=== PATIENT | female | born 1980 | race Caucasian/White ===

== ENCOUNTER 2018-01-19 09:01 | Inpatient (IN) | payer MEDICAID ==
[~2018-01-19] VITALS: Ht 172.7 cm; Wt 66.0 kg
[2018-01-19] VITALS (9 sets, daily range): BP systolic 99–117; BP diastolic 56–79; PULSE 65–86; RESP 16–20; TEMP 99.4; O2SAT 96–100
[2018-01-19] MEDS ORDERED: ZOLO25TA PO (09:16)
[2018-01-19] MEDS ORDERED: IBUP1TAB7 PO (09:16)
--- NOTE | 2018-01-19 09:23 | PD ---
HPI Chief Complaint: Musculoskeletal Complaint Time Seen by Provider: 09:16 Travel History International Travel<30 days: No Contact w/Intl Traveler<30days: No Traveled to known affect area: No History of Present Illness HPI Today while the patient was ambulating about she had a mechanical trip and fall , landing directly onto her left elbow. Immediately after that fall she was been unable to extend or flex that elbow she is kept at a 90 flexed position. She is noted swelling to the elbow and just above the elbow. Patient denies any shoulder pain denies any wrist pain. Describes the pain as sharp , nonradiating, 9 out of 10, worse with moving, slightly better when standing still. Patient states that she has no known drug allergy She patient states that she has only a medical history of congenital hip dysplasia which required surgery PFSH Past Medical History ?: Not Social History Tobacco Use: No Allergies-Medications (Allergen,Severity, Reaction): Coded Allergies: No Known Allergies (Unverified , 01/19/18) Reported Meds & Prescriptions Reported Meds & Active Scripts Active Reported Ibuprofen 800 Mg Tab 800 Mg PO Q8H PRN Zoloft (Sertraline HCl) 25 Mg Tab 15 Mg PO DAILY Review of Systems General / Constitutional: No: Fever Eyes: No: Visual changes HENT: No: Headaches Cardiovascular: No: Chest Pain or Discomfort Respiratory: No: Shortness of Breath Gastrointestinal: No: Abdominal Pain Genitourinary: No: Dysuria Musculoskeletal: Positive: Limited ROM, Pain Skin: No Rash Neurologic: No: Weakness Psychiatric: No: Depression Endocrine: No: Polydipsia Hematologic/Lymphatic: No: Easy Bruising Physical Exam Narrative GENERAL: SKIN: Warm and dry. HEAD: Atraumatic. Normocephalic. EYES: Pupils equal and round. No scleral icterus. No injection or drainage. ENT: No nasal bleeding or discharge. Mucous membranes pink and moist. NECK: Trachea midline. No JVD. CARDIOVASCULAR: Regular rate and rhythm. RESPIRATORY: No accessory muscle use. Clear to auscultation. Breath sounds equal bilaterally. GASTROINTESTINAL: Abdomen soft, non-tender, nondistended. Hepatic and splenic margins not palpable. MUSCULOSKELETAL: Extremities without clubbing, cyanosis, or edema. left elbow edema, referred pain to the elbow with AP pressure at the distal radial ulnar wrist area. An abrasion over the elbow however no open laceration noted. Strong pulses to the axilla, antecubital area, and to distal radius area bilaterally... Soft compartments noted NEUROLOGICAL: Awake and alert. No obvious cranial nerve deficits. Motor grossly within normal limits. Five out of 5 muscle strength in the arms and legs. Normal speech. PSYCHIATRIC: Appropriate mood and affect; insight and judgment normal. Data Data Last Documented VS Vital Signs Date Time Temp Pulse Resp B/P (MAP) Pulse Ox O2 Delivery O2 Flow Rate FiO2 01/19/18 10:35 18 01/19/18 10:34 80 106/58 (74) 96 Room Air 01/19/18 09:03 99.4 Orders Orders Complete Blood Count With Diff (01/19/18 09:23) Basic Metabolic Panel (Bmp) (01/19/18 09:23) Prothrombin Time / Inr (Pt) (01/19/18 09:23) Act Partial Throm Time (Ptt) (01/19/18 09:23) Elbow, Complete (4 Vws) (01/19/18 09:23) Forearm (2vws) (01/19/18 09:23) Ondansetron Inj (Zofran Inj) (01/19/18 10:00) Hydromorphone Pf Inj (Dilaudid Pf Inj) (01/19/18 10:15) Hydromorphone Pf Inj (Dilaudid Pf Inj) (01/19/18 12:15) Labs Laboratory Tests Test 01/19/18 09:50 White Blood Count 10.4 TH/MM3 Red Blood Count 3.85 MIL/MM3 Hemoglobin 13.1 GM/DL Hematocrit 37.2 % Mean Corpuscular Volume 96.6 FL Mean Corpuscular Hemoglobin 34.0 PG Mean Corpuscular Hemoglobin Concent 35.2 % Red Cell Distribution Width 12.5 % Platelet Count 322 TH/MM3 Mean Platelet Volume 8.7 FL Neutrophils (%) (Auto) 76.3 % Lymphocytes (%) (Auto) 12.5 % Monocytes (%) (Auto) 7.6 % Eosinophils (%) (Auto) 2.9 % Basophils (%) (Auto) 0.7 % Neutrophils # (Auto) 7.9 TH/MM3 Lymphocytes # (Auto) 1.3 TH/MM3 Monocytes # (Auto) 0.8 TH/MM3 Eosinophils # (Auto) 0.3 TH/MM3 Basophils # (Auto) 0.1 TH/MM3 CBC Comment AUTO DIFF Differential Comment AUTO DIFF CONFIRMED Platelet Estimate NORMAL Platelet Morphology Comment NORMAL Prothrombin Time 10.6 SEC Prothromb Time International Ratio 1.0 RATIO Activated Partial Thromboplast Time 24.9 SEC Blood Urea Nitrogen 9 MG/DL Creatinine 0.42 MG/DL Random Glucose 100 MG/DL Calcium Level 8.5 MG/DL Sodium Level 142 MEQ/L Potassium Level 3.9 MEQ/L Chloride Level 109 MEQ/L Carbon Dioxide Level 24.0 MEQ/L Anion Gap 9 MEQ/L Estimat Glomerular Filtration Rate 172 ML/MIN MDM Medical Decision Making Medical Screen Exam Complete: Yes Emergency Medical Condition: Yes Medical Record Reviewed: Yes Differential Diagnosis Left elbow fracture versus elbow dislocation versus elbow contusion versus olecranon fracture Narrative Course X-ray shows comminuted displaced fracture involving the distal left humerus, entire medial epicondyle is a free segment, there is also posterior displacement of the ulna. Orthopedics will be called for admission Physician Communication Physician Communication Attempted to discuss the case with Dr. Wolfe, first call and second call did not return the call for about an hour or so, later on found that this was secondary to the Dr. Wolfe being involved in surgery. I reminded callback however I was in the middle of doing a central line for a septic shock patient and I could not speak with him at the time, Dr. Wolfe mentioned that he was on his way into another surgery at the time that I was placed in the central line. Therefore at this time I will be admitting the patient to the medicine service and have Dr. Wolfe consulted for evaluation of surgical repair Diagnosis Primary Impression: Comminuted left elbow fracture closed Admitting Information Admitting Physician Requests: Observation Wisam Hernandez MD Jan 19, 2018 09:23
--- NOTE | 2018-01-19 09:54 | RADRPT ---
EXAM DATE/TIME: 01/19/2018 09:28 [facility] COMPARISON: No previous studies available for comparison. INDICATIONS : Fall last night, left elbow pain. MEDICAL HISTORY : None. SURGICAL HISTORY : None. ENCOUNTER: Initial ACUITY: 2 days PAIN SCORE: 10/10 LOCATION: Left elbow FINDINGS: There is an intra-articular fracture with moderate displacement involving the distal left humerus. Th e visualized radius and ulna appear grossly intact. Please see elbow films for additional details. CONCLUSION: Elbow fracture Rosendo Oro MD on January 19, 2018 at 9:50 Board Certified Radiologist. This report was verified electronically.
--- NOTE | 2018-01-19 09:58 | RADRPT ---
EXAM DATE/TIME: 01/19/2018 09:28 [facility] COMPARISON: No previous studies available for comparison. INDICATIONS : Fall last night, left elbow pain. MEDICAL HISTORY : None. SURGICAL HISTORY : None. ENCOUNTER: Initial ACUITY: 2 days PAIN SCORE: 10/10 LOCATION: Left elbow FINDINGS: The examination demonstrates fracture of the left elbow. There is a large bone fragment which appears to represent a fracture dislocation of the medial epicondyles. There is posterior displacement of th e olecranon and proximal ulna. There is mild comminution. There is diffuse soft tissue swelling. CONCLUSION: 1. Comminuted, displaced fracture involving the distal left humerus. The entire medial epicondyle mirela ears to be a free fragment. There is posterior displacement of the ulna. Judah Byrd MD on January 19, 2018 at 9:52 Board Certified Radiologist. This report was verified electronically.
[2018-01-19] MEDS ORDERED: HYDROmorphone HCL PF 1 MG/ML VIAL IV PUSH ONE ×2 (10:00→12:00)
[2018-01-19] MEDS ORDERED: ONDANSETRON HCL 4 MG/2 ML VIAL IV PUSH ONE (10:00)
[2018-01-19 10:09] LABS: AUTOMATED NEUTROPHIL # 7.9 TH/MM3 (1.8-7.7); BASOPHIL # 0.1 TH/MM3 (0-0.2); BASOPHIL % 0.7 % (0.0-2.0); EOSINOPHIL # 0.3 TH/MM3 (0-0.4); EOSINOPHIL % 2.9 % (0.0-4.0); HEMATOCRIT 37.2 % (35.0-46.0); HEMOGLOBIN 13.1 GM/DL (11.6-15.3); LYMPH % 12.5 % (9.0-44.0); LYMPHOCYTE # 1.3 TH/MM3 (1.0-4.8); MEAN CELL VOLUME 96.6 FL (80.0-100.0); MEAN CORPUSCULAR HGB CONC 35.2 % (32.0-36.0); MEAN PLATELET VOLUME 8.7 FL (7.0-11.0); MONO % 7.6 % (0.0-8.0); MONOCYTE # 0.8 TH/MM3 (0-0.9); NEUT % 76.3 % (16.0-70.0); PLATELET COUNT 322 TH/MM3 (150-450); RED BLOOD COUNT 3.85 MIL/MM3 (4.00-5.30); RED CELL DISTRIBUTION WIDTH 12.5 % (11.6-17.2); WHITE BLOOD COUNT 10.4 TH/MM3 (4.0-11.0)
[2018-01-19 10:13] LABS: CALCIUM 8.5 MG/DL (8.5-10.1); PROTHROMBIN TIME - PATIENT 10.6 SEC (9.8-11.6)
[2018-01-19] MEDS ORDERED: HYDROmorphone HCL PF 2 MG/ML VIAL IV PUSH ONE ×2 (10:15→12:15)
[2018-01-19 10:17] LABS: CREATININE 0.42 MG/DL (0.50-1.00)
[2018-01-19] MEDS ORDERED: MAGNESIUM HYDROXIDE SUSP 30 ML CUP PO PRN (13:00)
[2018-01-19] MEDS ORDERED: ACETAMINOPHEN 325 MG TAB PO PRN (13:00)
[2018-01-19] MEDS ORDERED: NALOXONE HCL 0.4 MG/ML AMP IV PUSH PRN (13:00)
[2018-01-19] MEDS ORDERED: SODIUM CHLORIDE 0.9% FLUSH 10 ML FLUSH IV FLUSH PRN (13:00)
[2018-01-19] MEDS: SODIUM CHLOR 0.9% 1000 ML INJ 1,000 ML IV SCH (13:20)
[2018-01-19] MEDS: HYDROmorphone HCL PF 2 MG/ML VIAL IVS PRN ×2 (15:59→20:44)
[2018-01-19] MEDS: ONDANSETRON HCL 4 MG/2 ML VIAL IVP PRN ×3 (15:59→23:45)
--- NOTE | 2018-01-19 16:42 | HHI.HP ---
[facility] Service [facility] Primary Care Physician Non-Staff Admission Diagnosis COMMINUTED CLOSED LEFT ELBOW FRACTURE Diagnoses: Chief Complaint: Mechanical fall with elbow fracture Travel History International Travel<30 Days: No Contact w/Intl Traveler <30 Da: No Traveled to Known Affected Are: No History of Present Illness This patient is a 37-year-old female with history of anxiety arthritis and had a fall after climbing on a gait. She landed on her elbow and was unable to move it after she got herself up. She had quite a bit of swelling on exam originally and that this time the patient has been splinted by the emergency room. X-rays do show comminuted fracture displacing the ulna. Patient will need to be admitted to the hospital for surgical treatment of this traumatic fracture. Her pain has been controlled with IV Dilaudid. She is resting comfortably at this time Review of Systems Constitutional: DENIES: Diaphoretic episodes, Fatigue, Fever, Weight gain, Weight loss, Chills, Dizziness, Change in appetite, Night Sweats Endocrine: DENIES: Abnorml menstrual pattern, Heat/cold intolerance, Polydipsia , Polyuria, Polyphagia Eyes: DENIES: Blurred vision, Diplopia, Eye inflammation, Eye pain, Vision loss , Photosensitivity, Double Vision Ears, nose, mouth, throat: DENIES: Tinnitus, Hearing loss, Vertigo, Nasal discharge, Oral lesions, Throat pain, Hoarseness, Ear Pain, Running Nose, Epistaxis, Sinus Pain, Toothache, Odynophagia Respiratory: DENIES: Apneas, Cough, Snoring, Wheezing, Hemoptysis, Sputum production, Shortness of breath Cardiovascular: DENIES: Chest pain, Palpitations, Syncope, Dyspnea on Exertion , PND, Lower Extremity Edema, Orthopnea, Claudication Gastrointestinal: DENIES: Abdominal pain, Black stools, Bloody stools, Constipation, Diarrhea, Nausea, Vomiting, Difficulty Swallowing, Anorexia Genitourinary: DENIES: Abnormal vaginal bleeding, Dysmenorrhea, Dyspareunia, Sexual dysfunction, Urinary frequency, Urinary incontinence, Urgency, Hematuria , Dysuria, Nocturia, Vaginal discharge Musculoskeletal: COMPLAINS OF: Joint pain Integumentary: DENIES: Abnormal pigmentation, Pruritus, Rash, Nail changes, Breast masses, Breast skin changes, Nipple discharge Hematologic/lymphatic: DENIES: Bruising, Lymphadenopathy Immunologic/allergic: DENIES: Eczema, Urticaria Neurologic: DENIES: Abnormal gait, Headache, Localized weakness, Paresthesias, Seizures, Speech Problems, Tremor, Poor Balance Psychiatric: COMPLAINS OF: Anxiety, DENIES: Confusion, Mood changes, Depression , Hallucinations, Agitation, Suicidal Ideation, Homicidal Ideation Except as stated in HPI: all other systems reviewed are Neg Past Family Social History Past Medical History Anxiety Osteoarthritis Past Surgical History Hip surgery as a child Reported Medications Takes ibuprofen and Zoloft Allergies: Coded Allergies: No Known Allergies (Unverified , 01/19/18) Active Ordered Medications Reviewed in the EMR Family History Mother and father alive and well Social History No current tobacco or alcohol dependency, Lives with her family Physical Exam Vital Signs Vital Signs Date Time Temp Pulse Resp B/P (MAP) Pulse Ox O2 Delivery O2 Flow Rate FiO2 01/19/18 16:24 18 01/19/18 16:05 71 18 112/72 (85) 96 Room Air 01/19/18 15:16 68 18 107/66 (80) 98 Room Air 01/19/18 12:40 18 01/19/18 12:15 84 18 109/70 (83) 97 Room Air 01/19/18 10:35 18 01/19/18 10:34 80 18 106/58 (74) 96 Room Air 01/19/18 09:03 99.4 86 20 117/79 (92) 96 Physical Exam GENERAL: This is a well-nourished, well-developed patient, in no apparent distress. SKIN: No rashes, ecchymoses or lesions. Cool and dry. HEAD: Atraumatic. Normocephalic. No temporal or scalp tenderness. EYES: Pupils equal round and reactive. Extraocular motions intact. No scleral icterus. No injection or drainage. ENT: Nose without bleeding, purulent drainage or septal hematoma. Throat without erythema, tonsillar hypertrophy or exudate. Uvula midline. Airway patent. NECK: Trachea midline. No JVD or lymphadenopathy. Supple, nontender, no meningeal signs. CARDIOVASCULAR: Regular rate and rhythm without murmurs, gallops, or rubs. RESPIRATORY: Clear to auscultation. Breath sounds equal bilaterally. No wheezes , rales, or rhonchi. GASTROINTESTINAL:abdomen soft, non-tender, nondistended. No hepato-splenomegaly , or palpable masses. No guarding. MUSCULOSKELETAL: Left arm splint, Extremities without clubbing, cyanosis, or edema. No joint tenderness, effusion, or edema noted. No calf tenderness. Negative Homans sign bilaterally. NEUROLOGICAL: Awake and alert. Cranial nerves II through XII intact. Motor and sensory grossly within normal limits. Five out of 5 muscle strength in all muscle groups. Normal speech. Laboratory Laboratory Tests Test 01/19/18 09:50 White Blood Count 10.4 Red Blood Count 3.85 Hemoglobin 13.1 Hematocrit 37.2 Mean Corpuscular Volume 96.6 Mean Corpuscular Hemoglobin 34.0 Mean Corpuscular Hemoglobin Concent 35.2 Red Cell Distribution Width 12.5 Platelet Count 322 Mean Platelet Volume 8.7 Neutrophils (%) (Auto) 76.3 Lymphocytes (%) (Auto) 12.5 Monocytes (%) (Auto) 7.6 Eosinophils (%) (Auto) 2.9 Basophils (%) (Auto) 0.7 Neutrophils # (Auto) 7.9 Lymphocytes # (Auto) 1.3 Monocytes # (Auto) 0.8 Eosinophils # (Auto) 0.3 Basophils # (Auto) 0.1 CBC Comment AUTO DIFF Differential Comment AUTO DIFF CONFIRMED Platelet Estimate NORMAL Platelet Morphology Comment NORMAL Prothrombin Time 10.6 Prothromb Time International Ratio 1.0 Activated Partial Thromboplast Time 24.9 Blood Urea Nitrogen 9 Creatinine 0.42 Random Glucose 100 Calcium Level 8.5 Sodium Level 142 Potassium Level 3.9 Chloride Level 109 Carbon Dioxide Level 24.0 Anion Gap 9 Estimat Glomerular Filtration Rate 172 Result Diagram: 01/19/1850 01/19/18949 Imaging Last Impressions Radius/Ulna X-Ray 01/19/18922 Signed Impressions: Service Date/Time: Friday, January 19, 2018 09:28 - CONCLUSION: Elbow fracture Rosendo Oro MD Elbow X-Ray 01/19/18922 Signed Impressions: Service Date/Time: Friday, January 19, 2018 09:28 - CONCLUSION: 1. Comminuted, displaced fracture involving the distal left humerus. The entire medial epicondyle appears to be a free fragment. There is posterior displacement of the ulna. MD Karen Acuña VTE Risk Assessment Caprini VTE Risk Assessment: No/Low Risk (score <= 1) Caprini Risk Assessment Model Point Value = 1 Point Value = 2 Point Value = 3 Point Value = 5 Age 41-60 Minor surgery BMI > 25 kg/m2 Swollen legs Varicose veins or History of unexplained or recurrent spontaneous Oral contraceptives or hormone replacement Sepsis (< 1 month) Serious lung disease, including pneumonia (< 1 month) Abnormal pulmonary function Acute myocardial infarction Congestive heart failure (< 1 month) History of inflammatory bowel disease Medical patient at bed rest Age 61-74 Arthroscopic surgery Major open surgery (> 45 min) Laparoscopic surgery (> 45 min) Malignancy Confined to bed (> 72 hours) Immobilizing plaster cast Central venous access Age >= 75 History of VTE Family history of VTE Factor V Leiden Prothrombin [id number] Lupus anticoagulant Anticardiolipin antibodies Elevated serum homocysteine Heparin-induced thrombocytopenia Other congenital or acquired thrombophilia Stroke (< 1 month) Elective arthroplasty Hip, pelvis, or leg fracture Acute spinal cord injury (< 1 month) Prophylaxis Regimen Total Risk Factor Score Risk Level Prophylaxis Regimen 0-1 Low Early ambulation 2 Moderate Order ONE of the following: *Sequential Compression Device (SCD) *Heparin 5000 units SQ BID 3-4 Higher Order ONE of the following medications: *Heparin 5000 units SQ TID *Enoxaparin/Lovenox 40 mg SQ daily (WT < 150 kg, CrCl > 30 mL/min) *Enoxaparin/Lovenox 30 mg SQ daily (WT < 150 kg, CrCl > 10-29 mL/min) *Enoxaparin/Lovenox 30 mg SQ BID (WT < 150 kg, CrCl > 30 mL/min) AND/OR *Sequential Compression Device (SCD) 5 or more Highest Order ONE of the following medications: *Heparin 5000 units SQ TID (Preferred with Epidurals) *Enoxaparin/Lovenox 40 mg SQ daily (WT < 150 kg, CrCl > 30 mL/min) *Enoxaparin/Lovenox 30 mg SQ daily (WT < 150 kg, CrCl > 10-29 mL/min) *Enoxaparin/Lovenox 30 mg SQ BID (WT < 150 kg, CrCl > 30 mL/min) AND *Sequential Compression Device (SCD) Assessment and Plan Problem List: (1) Anxiety ICD Code: F41.9 - Anxiety disorder, unspecified Plan: Continue home medications (2) Fractured elbow ICD Code: S42.409A - Unspecified fracture of lower end of unspecified humerus, initial encounter for closed fracture Plan: Continue with pain medication, IV Dilaudid needed Surgical treatment requested by orthopedic surgeon in consultation Physician Certification 2 Midnight Certification Type: Admission for Inpatient Services Order for Inpatient Services The services are ordered in accordance with Medicare regulations or non- Medicare payer requirements, as applicable. In the case of services not specified as inpatient-only, they are appropriately provided as inpatient services in accordance with the 2-midnight benchmark. Estimated LOS (days): 2 2 days is the estimated time the patient will need to remain in the hospital, assuming treatment plan goals are met and no additional complications. Post-Hospital Plan: Home Patty Jimenez MD Jan 19, 2018 16:42
[2018-01-19] MEDS: DOCUSATE SODIUM 50 MG/SENNA 8.6 MG TAB PO SCH (21:00)
[2018-01-19] MEDS: SODIUM CHLORIDE 0.9% FLUSH 10 ML FLUSH IV FLUSH SCH (21:00)
[2018-01-20] MEDS: HYDROmorphone HCL PF 2 MG/ML VIAL IVS PRN ×3 (01:39→14:42)
[2018-01-20 01:45] VITALS: BP 98/56; PULSE 65; RESP 16; O2SAT 99
[2018-01-20] MEDS: ONDANSETRON HCL 4 MG/2 ML VIAL IVP PRN (05:56)
[2018-01-20 06:16] VITALS: BP 103/52; PULSE 74; RESP 16; O2SAT 99
--- NOTE | 2018-01-20 07:23 | RADRPT ---
EXAM DATE/TIME: 01/20/2018 06:48 [facility] COMPARISON: ELBOW LEFT COMPLETE (4 VWS), January 19, 2018, 9:28. INDICATIONS : Comminuted closed left elbow fracture. RADIATION DOSE: 14.84 CTDIvol (mGy) MEDICAL HISTORY : None SURGICAL HISTORY : None. ENCOUNTER: Initial ACUITY: 1 day PAIN SCALE: 4/10 LOCATION: Left elbow TECHNIQUE: Volumetric scanning of the elbow was performed. Using automated exposure control and adjustment of t he mA and/or kV according to patient size, radiation dose was kept as low as reasonably achievable to obtain optimal diagnostic quality images. DICOM format image data is available electronically for r eview and comparison. FINDINGS: There is evidence of an acute comminuted displaced intracondylar fracture of the distal humerus. Ther e is a nondisplaced fracture involving the olecranon process of the proximal ulna. There is a tiny radha ne fragment adjacent to the radial head which raises the possibility of tiny avulsion fracture of the radial head. Diffuse soft tissue swelling is noted. CONCLUSION: 1. Acute comminuted displaced intracondylar fracture of the distal humerus. 2. Nondisplaced fracture involving the olecranon process of the proximal ulna. 3. Tiny bone fragment adjacent to the radial head which is a possibility of tiny avulsion fracture of the radial head. Alhaji Bruce MD on January 20, 2018 at 7:14 Board Certified Radiologist. This report was verified electronically.
[2018-01-20] MEDS: SODIUM CHLORIDE 0.9% FLUSH 10 ML FLUSH IV FLUSH SCH ×2 (08:39→20:54)
[2018-01-20] MEDS: SODIUM CHLOR 0.9% 1000 ML INJ 1,000 ML IV SCH ×2 (08:51)
[2018-01-20 08:58] VITALS: BP 112/69; PULSE 64; RESP 20; O2SAT 93
[2018-01-20] MEDS: DOCUSATE SODIUM 50 MG/SENNA 8.6 MG TAB PO SCH ×2 (09:00→21:00)
[2018-01-20 12:00] VITALS: BP 108/62; PULSE 68; RESP 18; TEMP 97.9; O2SAT 97
[2018-01-20] MEDS ORDERED: NEOSTIGMINE 5 MG/5 ML SYRINGE IV PUSH ONE (12:00)
[2018-01-20] MEDS ORDERED: PROPOFOL 200 MG/20 ML AMP IV ONE (12:00)
[2018-01-20] MEDS ORDERED: LIDOCAINE HCL 1% PF 5 ML SYRINGE OTHER ONE (12:00)
[2018-01-20] MEDS ORDERED: ONDANSETRON HCL 4 MG/2 ML VIAL IV ONE (12:00)
[2018-01-20] MEDS ORDERED: LACTATED RINGER'S 1000 ML INJ 1,000 ML IV ONE (12:00)
[2018-01-20] MEDS ORDERED: ROCURONIUM INJ 50 MG/5 ML SYRINGE IV PUSH ONE (12:00)
[2018-01-20] MEDS ORDERED: GLYCOPYRROLATE 1 MG/5 ML SYRINGE IV PUSH ONE (12:00)
[2018-01-20] MEDS ORDERED: DEXAMETHASONE SOD PHOS 4 MG/ML VIAL IV ONE (12:00)
[2018-01-20] MEDS ORDERED: PHENYLEPH/NS 1000 MCG/10 ML SYR IV ONE (12:00)
[2018-01-20] MEDS ORDERED: ePHEDrine/NS 25 MG/5 ML SYRINGE IV ONE (12:00)
[2018-01-20] MEDS ORDERED: SODIUM CHLORID 0.9% 500 ML IV PRN (14:15)
[2018-01-20] MEDS ORDERED: METOPROLOL TARTRATE 25 MG TAB PO PRN (14:15)
[2018-01-20] MEDS ORDERED: CHLORHEXIDINE GLUCONATE 2 % 1 PACK (2 CLOTHS) TOPICAL PRN (14:15)
[2018-01-20] MEDS ORDERED: POVIDONE IODINE 5% (ANTISEPSIS KIT) 4 APPLICATIONS EACH NARE PRN (14:15)
[2018-01-20] MEDS ORDERED: LACTATED RINGER'S 1000 ML IV PRN (14:15)
[2018-01-20] MEDS ORDERED: APREPITANT 40 MG CAP ONE (16:00)
[2018-01-20] MEDS: HYDROmorphone HCL PF 2 MG/ML VIAL IV PRN (16:06)
[2018-01-20] MEDS ORDERED: VANCOMYCIN HCL 1000 MG VIAL ONE (16:11)
[2018-01-20] MEDS ORDERED: GENTAMICIN SULFATE 80 MG/2 ML VIAL ONE (16:11)
[2018-01-20] MEDS ORDERED: APREPITANT 40 MG CAP PO ONE (16:30)
[2018-01-20] MEDS ORDERED: ceFAZolin INJ 1,000 MG VIAL ONE (17:08)
[2018-01-20] MEDS ORDERED: ACETAMINOPHEN 1000 MG/100 ML 100 ML IV ONE (18:13)
[2018-01-20] MEDS ORDERED: VITA500012 PO (18:24)
[2018-01-20] MEDS ORDERED: HYDR-3583 PO (18:24)
[2018-01-20] MEDS ORDERED: CALCTAB19 PO (18:24)
[2018-01-20] MEDS ORDERED: MIDAZOLAM HCL 2 MG/2 ML VIAL ONE (19:13)
--- NOTE | 2018-01-20 19:22 | PD.OP ---
cc: Michel Bey MD Operative Report Date of Surgery: Jan 20, 2018 Preoperative Diagnosis: Displaced intra-articular left supracondylar distal humerus fracture Postoperative Diagnosis: Procedure: Open reduction internal fixation left distal humerus intra-articular supracondylar fracture Anesthesia: Gen. Surgeon: Michel Bey Pressure Dispatcher(s): Aristeo Graff PA-C The surgical procedure was assisted by my physician virtual customer assistant. My P.A. presence was necessary throughout this case for the manipulation and positioning of the surgical extremity. My P.A. was assisting me throughout the duration of this procedure. The skill set of a physician virtual customer assistant was medically necessary to complete this procedure. During the surgical case the surgical brace maker was working at the back table and the physician virtual customer assistant was directly assisting me. Operation and Findings: Patient was seen and evaluated preoperatively. Treatment options were discussed regarding displaced left distal humerus fracture including surgical and nonsurgical treatments. After detailed discussion of risk and benefits of procedure patient wishes to proceed with surgery. Risks of surgery include bleeding, infection, nonunion, malunion, painful hardware, loss of motion of shoulder and elbow, weakness and numbness of arm, ulnar nerve injury as well as medical competitions including blood clots stroke and . Patient was brought to operating room and placed on the OR table. GETA was administered by anesthesiologist. Patient was positioned in lateral decubitus position. Extremities were well-padded. Axillary roll was placed. Operative arm and shoulder were prepped with alcohol followed by Hibiclens and draped usual sterile fashion. Timeout procedure was performed. IV antibiotics were given prior to incision. A standard posterior approach was utilized. Subcutaneous tissues was dissected with Bovie. The lateral border of the triceps was elevated off of the distal humerus. Fracture site was visualized. Next, the ulnar nerve was identified and protected throughout the procedure. The nerve was intact. The fracture was identified along the medial distal humerus. Soft tissue was removed from the fracture site. Fracture site was cleaned with curettes. At this point the fracture was reduced using fracture tenaculums. The lateral fragment was reduced first. There were multiple small bone fragments within the fossa that were excised. Next the medial fragment was reduced. The joint was slightly rate distracted to allow for visualization of the articular surface. Articular surface keyed in anatomic alignment. Multiplanar fluoroscopy confirmed excellent of fracture. Synthes distal humerus plates were selected. The medial plate was provisionally held the bone with K wires. 3.5 cortical screws were placed to compress plate to bone. Multiple 2.7 locking screws were placed distally. Care was taken to keep screws from penetrating the articular surface. Multiple screws were placed in each side of the fracture. All screws were predrilled and premeasured for appropriate length. Next the lateral plate was placed along the posterior lateral humerus. Plate was provisionally held to bone with K wires. 3.5 cortical screws were used to compress plate to bone. Additional 2.7 locking screws were placed distally. K wires were removed. Final fluoroscopy revealed excellent alignment of fracture with well-placed hardware. Incision was thoroughly irrigated. Fascia was closed with #1 Vicryl , subcutaneous tissues closed with 3-0 Vicryl, and skin was closed with radha. Sterile dressings were applied. Needle and sponge counts were correct. Patient was placed into a sling, and then transferred to recovery room in stable condition Michel Bey MD Jan 20, 2018 19:22
[2018-01-20] MEDS ORDERED: diphenhydrAMINE HCL 25 MG CAP PO PRN (19:30)
[2018-01-20] MEDS ORDERED: DO NOT ADM ANY ANTICOAGULANT DRUGS PRN (19:41)
--- NOTE | 2018-01-20 19:48 | MB ---
cc: Michel Curtis MD DATE OF CONSULT: 01/20/2018 REASON FOR CONSULTATION: Comminuted intraarticular left distal humerus fracture. CONSULTING PHYSICIAN: Patty Jimenez MD HISTORY OF PRESENT ILLNESS: Duran is a 37-year-old female who had a fall. She is visiting [place] from [place]. She landed on her left elbow. She had immediate pain. She presented to [facility]. X-rays revealed a displaced intra-articular left distal humerus fracture. She was transferred to [facility] for definitive treatment. Her only complaint is her left elbow. Pain is worse with movement. Pain is improved with rest. She denies dizziness, syncope, loss of consciousness. PAST MEDICAL HISTORY: ILLNESSES: Anxiety and arthritis. PAST SURGICAL HISTORY: Hip surgery as a child. ALLERGIES: NO KNOWN DRUG ALLERGIES. MEDICATIONS: Include ibuprofen and Zoloft. FAMILY HISTORY: Noncontributory. She denies any familial medical problems. SOCIAL HISTORY: The patient lives in [place] with her family. She denies alcohol or drug use. REVIEW OF SYSTEMS: The patient denies headache, visual changes, neck pain, chest pain, shortness of breath, abdominal pain, nausea, vomiting, recent weight loss, fevers or chills, numbness or tingling of extremities. She complains of left elbow pain. Pain is worse with movement. PHYSICAL EXAMINATION: GENERAL: The patient is a pleasant 37-year-old female in no acute distress. She is awake and alert. She is alert and oriented x 3. VITAL SIGNS: Temperature 97.9, pulse 68, respirations 18, blood pressure 108/62, O2 saturation 97% on room air. HEAD: The patient is normocephalic. Pupils are equal. NECK: Soft, nontender. Trachea is midline. ABDOMEN: Soft, nontender, nondistended. EXTREMITIES: Examination of left upper extremity reveals no tenderness on her shoulder or fingers. She has good capillary refill in all fingers. She is able to flex and extend her fingers. She is tender to palpation on the elbow. Skin is intact. She has pain with any elbow motion. Forearm compartments are soft. Radial pulses palpable. Examination of right arm reveals no pain with shoulder, elbow or wrist motion. Skin is intact. Radial pulses palpable. Sensation is intact in all fingers. Examination of bilateral lower extremities reveals no pain with hip, knee or ankle motion. Skin is intact to both feet. Dorsalis pedis pulses are palpable. Sensation is intact in both feet. LABORATORY DATA: The patient has a white blood cell count of 10.4, hemoglobin of 13 and Hct of 37.2. INR is 1.0. BUN is 9 and creatinine is 0.42. IMAGING: X-rays of left elbow were reviewed. X-rays and CT scan reveal a comminuted intra-articular displaced left distal humerus fracture. IMPRESSION: Comminuted intra-articular left distal humerus fracture. PLAN: Treatment options were discussed with the patient. At this point, I would recommend open reduction and internal fixation of the left distal humerus. Risks of surgery include bleeding, infection, injuries to arteries, nerves and blood vessels, nonunion, malunion, painful hardware, elbow stiffness, elbow arthritis, injury to ulnar nerve, weakness and numbness of hand, as well as medical complications including blood clot, stroke, heart attack and . All questions were answered. I will plan surgery today. A mid-level provider in my office, nurse practitioner or PA, may see this patient on a follow-up basis and continue to implement the objective of this plan including: Starting or adjusting medications, injections of muscle, tendon, bursa or joints, cast application, orthotic or brace application, physical therapy, further radiographic studies including x-ray, MRI, CT, ultrasounds or bone scan, vascular studies, neurologic studies, or other specialist consultations, and proceeding with surgical management as appropriate. MD ELLEN Trejo/LADI , 07:26 PM , 07:46 PM JOHNATHAN
[2018-01-20] MEDS ORDERED: *MEPERIDINE 25 MG INJ VIAL PERIprocedural Use ONLY ONE (19:49)
--- NOTE | 2018-01-20 20:15 | RADRPT ---
EXAM DATE/TIME: 01/20/2018 18:45 [facility] COMPARISON: No previous studies available for comparison. INDICATIONS : ORIF of the left elbow. MEDICAL HISTORY : None. SURGICAL HISTORY : None. ENCOUNTER: Subsequent ACUITY: 3 days PAIN SCORE: Non-responsive. LOCATION: Left upper extremity FINDINGS: Two view examination of the left elbow demonstrates plate and screw fixation of the distal humerus. A natomic alignment at the elbow. CONCLUSION: 1. Fixation distal humerus. Logan Galvez MD on January 20, 2018 at 20:12 Board Certified Radiologist. This report was verified electronically.
[2018-01-20] MEDS ORDERED: *morphine SULFATE 8 MG/ML PERIprocedure ONLY ONE (20:22)
[2018-01-20] MEDS ORDERED: *morphine SULFATE 10 MG/ML PERIprocedure ONLY ONE (20:50)
[2018-01-20] MEDS: ceFAZolin 2 GM PREMIX 50 ML IV SCH (23:50)
[2018-01-20] MEDS: ACETAMINOPHEN/HYDROcodone 325 MG/10 MG TAB PO PRN (23:51)
[2018-01-21] MEDS ORDERED: *morphine SULFATE 8 MG/ML PERIprocedure ONLY ONE (01:02)
[2018-01-21] MEDS: ACETAMINOPHEN/HYDROcodone 325 MG/10 MG TAB PO PRN ×2 (04:02→07:06)
[2018-01-21] MEDS: ceFAZolin 2 GM PREMIX 50 ML IV SCH (06:30)
[2018-01-21 08:00] VITALS: BP 155/98; PULSE 89; RESP 18; TEMP 98.7; O2SAT 95
--- NOTE | 2018-01-21 08:19 | PD.ORT.PN ---
Subjective Subjective Remarks POD 1 s/p ORIF left distal humerus fx patient doing well. reports that minimal pain. states that had slight numbness/ tingling to ring and pinky finger at first, but has subsided. Objective Vitals Vital Signs Date Time Temp Pulse Resp B/P (MAP) Pulse Ox O2 Delivery O2 Flow Rate FiO2 01/21/18 08:00 98.7 89 18 155/98 (117) 95 Room Air 01/21/18 07:13 72 17 140/82 (101) 95 Nasal Cannula 2 01/21/18 04:02 69 14 132/66 (88) 94 Nasal Cannula 2 01/21/18 03:11 69 14 136/68 (90) 93 Nasal Cannula 2 01/21/18 02:00 70 16 127/72 (90) 94 Nasal Cannula 2 01/21/18 01:00 73 18 127/68 (87) 94 Nasal Cannula 2 01/20/18 23:00 89 20 126/71 (89) 95 Nasal Cannula 2 01/20/18 22:00 73 14 128/71 (90) 99 Nasal Cannula 2 01/20/18 21:00 67 12 127/62 (83) 99 Nasal Cannula 2 01/20/18 20:45 66 16 125/68 (87) 99 Nasal Cannula 2 01/20/18 20:30 67 14 128/67 (87) 99 Nasal Cannula 2 01/20/18 20:15 70 12 138/68 (91) 99 Nasal Cannula 2 01/20/18 20:00 72 14 130/60 (83) 98 Nasal Cannula 2 01/20/18 19:40 98.4 79 16 145/68 (93) 100 Nasal Cannula 2 01/20/18 12:00 97.9 68 18 108/62 (77) 97 01/20/18 11:20 01/20/18 08:58 64 20 112/69 (83) 93 I/O 01/20/18 01/20/18 01/20/18 01/21/18 01/21/18 01/21/18 07:00 15:00 23:00 07:00 15:00 23:00 Intake Total 1000 ml 682 ml 350 ml Output Total 100 ml Balance 900 ml 682 ml 350 ml Intake Oral 250 ml 350 ml IV Total 1000 ml TPN/PPN 432 ml Output Estimated Blood Loss 100 ml # Voids 2 Result Diagram: 01/19/1850 01/19/1850 Objective Remarks LUE: dressings clean and dry. intact. NVI to median/ulnar nerve. good extension of wrist and fingers Assessment & Plan Assessment and Plan 1) Left Distal Humerus Fx s/p ORIF - POD 1 -NWB -maintain dressings -come out of sling 2-4x/day to work on gently passive motion of elbow -DC home today -f/u with Ortho back in [place] in 2 weeks -scripts on chart Aristeo Graff/First Julia ENNIS Jan 21, 2018 08:19
[2018-01-21] MEDS ORDERED: CHOLECALCIFEROL (VIT D3) 1000 UNIT TAB PO SCH (09:00)
== END 2018-01-21 08:45 | disposition home or self-care (01) | DRG 494 ==
LOC: PHED 09:01 → PHEDA 12:31 → PHEDH 22:50 → HSDI 01-20 11:48
PROVIDERS: ADMIT Internal Medicine; ATTEND Internal Medicine
PROC: 0PSG04Z Reposition Left Humeral Shaft with Internal Fixation Device, Open Approach (ICD-10-PCS; principal; 2018-01-20 16:58)
DX: S42.442A Displaced fracture (avulsion) of medial epicondyle of left humerus, initial encounter for closed fracture (principal); W01.0XXA Fall on same level from slipping, tripping and stumbling without subsequent striking against object, initial encounter; F41.9 Anxiety disorder, unspecified; M19.90 Unspecified osteoarthritis, unspecified site
CPT/HCPCS: 73070; 73080; 73090; 73200; 76000; 80048; 85025; 85610; 85730; 96374; 96375; 96376; C1713; J0131; J0690; J1100; J1170; J1580; J2175; J2250; J2270; J2370; J2405; J2710; J3010; J3370; J7030; J7120; J8501